=== PATIENT | male | born 1950 | race Caucasian/White ===

== ENCOUNTER 2025-02-11 07:41 | Outpatient (CLI) | payer MEDICARE ==
[2025-02-11 08:57] LABS: #Basophils 0.03 10x3/uL (0.0-0.2); #Eosinophils 0.12 10x3/uL (0.0-0.7); #Monocytes 0.70 10x3/uL (0.11-0.59); #Neutrophils 2.86 10x3/uL (1.40-6.50); %Basophils 0.6 % (0.0-1.0); %Eosinophils 2.5 % (0.0-10.0); %Lymphocytes 22.9 % (21.0-51.0); %Monocytes 14.5 % (0.0-10.0); %Neutrophils 59.1 % (42.0-75.0); Hematocrit 42.3 % (42.0-52.0); Hemoglobin 13.7 g/dL (14.0-18.0); Mean Corpuscular Hemoglobin 29.5 pg (27.0-31.0); Mean Corpuscular Volume 91.0 fL (78.0-98.0); Platelet Count 185 10x3/uL (130-400); Red Blood Cell (RBC) Count 4.65 mill/uL (4.70-6.10); White Blood Cell (WBC) Count 4.84 10x3/uL (4.8-10.8)
[2025-02-11 09:12] LABS: ALT (SGPT) 14 U/L (Less than 45); AST (SGOT) 23 U/L (11-34); Albumin 4.2 g/dL (3.1-4.5); Alkaline Phosphatase 53 U/L (40-110); Anion Gap 9 mmol/L (10-20); BUN (Urea Nitrogen) 19 mg/dL (8.4-25.7); Bilirubin, Total 0.8 mg/dL (0.3-1.2); Calc. Creatinine Clearance 0 mL/min (70-130); Calcium 9.2 mg/dL (7.8-10.44); Carbon Dioxide 25 mmol/L (23-31); Chloride 106 mmol/L (98-107); Globulin 2.5 g/dL (2.4-3.5); Glucose 93 mg/dL (83-110); Potassium 4.6 mmol/L (3.5-5.1); Sodium 135 mmol/L (136-145)
[2025-02-11 09:15] LABS: INR-International Normal Ratio 1.2; PTT 31.7 sec (22.9-36.1); Prothrombin Time 15.7 sec (12.0-14.7)
[2025-02-12 09:13] LABS: Myoglobin, Serum 54 ng/mL (28-72)
== END 2025-02-11 07:42 | disposition home or self-care (01) ==
LOC: LABBT 07:41
PROVIDERS: ATTEND Internal Medicine Cardiovascular Disease
DX: Z01.818 Encounter for other preprocedural examination (principal); I48.0 Paroxysmal atrial fibrillation
CPT/HCPCS: 80053; 83010; 83051; 83874; 85025; 85610; 85730; 93005; 93010

== ENCOUNTER 2025-02-16 07:15 | Day surgery (SDC) | payer MEDICARE ==
[2025-02-11 08:17] VITALS: BMI 25.7
[2025-02-16] MEDS ORDERED: Heparin 10,000 UNITS/ 10 ML VIAL ONE (07:24)
[2025-02-16] MEDS ORDERED: Isoproterenol 0.2 MG/1 ML AMP ONE (07:25)
[2025-02-16] MEDS ORDERED: Ondansetron PF 4 MG/2 ML Vial ONE (09:08)
[2025-02-16] MEDS ORDERED: Rocuronium Bromide 10 MG/ML (10ML VIAL) ONE ×2 (09:09→13:43)
[2025-02-16] MEDS ORDERED: PHENYLEPHRINE-NS 100 MCG/ML 10 ML SYRINGE ONE (12:15)
[2025-02-16] MEDS ORDERED: PROPOFOL 200 MG/20 ML VIAL ONE (12:15)
[2025-02-16] MEDS ORDERED: Lidocaine 1% PF 5 ML VIAL ONE (12:15)
[2025-02-16] MEDS ORDERED: SUGAMMADEX SODIUM 200 MG/2 ML VIAL ONE (14:07)
[2025-02-16] MEDS ORDERED: Acetaminophen 325 MG TAB ONE (17:17)
== END 2025-02-16 18:18 | disposition home or self-care (01) ==
LOC: SDC 07:15
PROVIDERS: ATTEND Internal Medicine Cardiovascular Disease
PROC: 4A023FZ Measurement of Cardiac Rhythm, Percutaneous Approach (ICD-10-PCS; principal; 2025-02-16)
PROC: 02583ZZ Destruction of Conduction Mechanism, Percutaneous Approach (ICD-10-PCS; 2025-02-16)
DX: I48.0 Paroxysmal atrial fibrillation (principal); Z79.01 Long term (current) use of anticoagulants; Z79.899 Other long term (current) drug therapy
CPT/HCPCS: 85347 ×2; 86850; 86900; 86901; 93005; 93623; 93656; 93657; C1730 ×2; C1733; C1759; C1760; C1766; C1769; C1893; C1894 ×2; J1100; J1644 ×2; J2250; J2405; J2704; J2720; J3010